=== PATIENT | male | born 1990 | race Caucasian/White ===

== ENCOUNTER 2019-04-29 07:48 | Emergency (ER) | payer BC ==
[~2019-04-29] VITALS: Ht 180.3 cm; Wt 68.0 kg
[2019-04-29] MEDS ORDERED: LIDOCAINE 2%-EPI 1:100,000 30 ML VIAL ONE (07:57)
[2019-04-29] MEDS ORDERED: TDAP [DIPH/PERTUSSIS/TET] 0.5 ML VIAL IM ONE ×2 (08:00)
[2019-04-29] MEDS ORDERED: LIDOCAINE 1%-EPI 1:100,000 50 ML VIAL IJ ONE (08:00)
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
[2019-04-29 08:31] VITALS: BP 121/66
--- NOTE | 2019-04-29 08:31 | NUR ---
Patient discharged to home in stable condition. Written and verbal after care instructions given. Patient verbalizes understanding of instruction.
== END 2019-04-29 08:31 | disposition home or self-care (01) ==
LOC: ER 07:50
DX: S81.812A Laceration without foreign body, left lower leg, initial encounter (principal); W26.8XXA Contact with other sharp object(s), not elsewhere classified, initial encounter; Y93.39 Activity, other involving climbing, rappelling and jumping off; Y92.89 Other specified places as the place of occurrence of the external cause; Y99.8 Other external cause status
CPT/HCPCS: 12002; 90471; 90715; 99283; A6403; J3490 ×2

== ENCOUNTER 2019-05-06 09:57 | Emergency (ER) | payer BC ==
[~2019-05-06] VITALS: Ht 180.3 cm; Wt 68.0 kg
[2019-05-06 10:08] VITALS: BP 143/89
== END 2019-05-06 10:29 | disposition home or self-care (01) ==
LOC: ER 09:57
DX: S81.812D Laceration without foreign body, left lower leg, subsequent encounter (principal); X58.XXXD Exposure to other specified factors, subsequent encounter